=== PATIENT | male | born 1945 | race Caucasian/White ===

== ENCOUNTER → 2019-06-26 | Outpatient (CLI) | payer MEDICARE, OTHER | LOC: LL.CLIN 14:45 | PROVIDERS: ATTEND Nurse Practitioner | DX: Z23 Encounter for immunization (principal) | CPT/HCPCS: 90662; G0008 ==

== ENCOUNTER 2021-09-11 07:37 | Day surgery (SDC) | payer MEDICARE ==
[2021-09-11] MEDS ORDERED: Lactated Ringers 1,000 ML IV SCH (08:00)
[2021-09-11] MEDS ORDERED: Sodium Chloride 0.9% 10 ML Syringe FLUSH SCH (08:00)
[2021-09-11] MEDS ORDERED: Propofol 200 MG/20 ML SDV ONE ×2 (08:26→09:07)
[2021-09-11] MEDS ORDERED: Midazolam 1 MG/ML 2 ML SDV ONE ×2 (08:26→09:07)
[2021-09-11 15:00] VITALS: BP 176/108; PULSE 79
== END 2021-09-11 10:17 | disposition home or self-care (01) ==
LOC: LL.SDS 07:37
PROVIDERS: ATTEND Surgery
DX: Z12.11 Encounter for screening for malignant neoplasm of colon (principal); K57.30 Diverticulosis of large intestine without perforation or abscess without bleeding; E78.00 Pure hypercholesterolemia, unspecified; I10 Essential (primary) hypertension; J44.9 Chronic obstructive pulmonary disease, unspecified; E05.90 Thyrotoxicosis, unspecified without thyrotoxic crisis or storm; Z79.899 Other long term (current) drug therapy; Z86.010 Personal history of colon polyps
CPT/HCPCS: J2250; J2704; J7120

== ENCOUNTER 2023-08-09 11:28 | Emergency (ER) | payer MEDICARE ==
[2023-08-09 12:18] LABS: BASOPHILS PERCENT AUTO 1.2 % (0.0-2.0); EOSINOPHILS ABSOLUTE AUTO 0.13 K/uL (0.00-0.50); EOSINOPHILS PERCENT AUTO 1.5 % (0.0-5.0); HEMATOCRIT 47.5 % (39.0-49.0); HEMOGLOBIN 15.3 g/dL (13.1-16.8); LYMPHOCYTES ABSOLUTE AUTO 0.89 K/uL (0.50-3.50); LYMPHOCYTES PERCENT AUTO 10.5 % (10.0-50.0); MEAN CORPUSCULAR HEMOGLOBIN 30.7 pg (28.2-33.3); MEAN CORPUSCULAR HGB CONC 32.2 g/dL (31.7-36.0); MEAN CORPUSCULAR VOLUME 95.2 fL (84.0-98.0); MONOCYTES ABSOLUTE AUTO 1.38 K/uL (0.00-1.00); MONOCYTES PERCENT AUTO 16.3 % (2.0-14.0); NEUTROPHILS ABSOLUTE AUTO 5.97 K/uL (1.40-7.00); NEUTROPHILS PERCENT AUTO 70.5 % (45.0-80.0); PLATELET COUNT,PLT 275 K/uL (150-350); RED BLOOD CELL COUNT 4.99 M/uL (4.33-5.41); RED CELL DISTRIBUTION WIDTH 13.6 % (11.2-14.1); WHITE BLOOD CELL COUNT,WBC 8.5 K/uL (4.0-10.2)
[2023-08-09] MEDS ORDERED: Sodium Chloride 0.9% 10 ML Syringe FLUSH PRN (12:21)
[2023-08-09 12:48] VITALS: BP 136/81; PULSE 91
[2023-08-09 12:51] LABS: PRO B-TYPE NATRIUR PEPT,BNPPRO 219 pg/mL (0-125)
[2023-08-09 12:54] LABS: POTASSIUM,K 3.8 mmol/L (3.5-5.1)
[2023-08-09 12:55] LABS: ALBUMIN 3.5 g/dL (3.4-5.0); ANION GAP 13.9 meq/L (7-15); BILIRUBIN TOTAL 1.2 mg/dL (0.2-1.0); CALCIUM 9.1 mg/dL (8.5-10.1); CARBON DIOXIDE,CO2 27.9 mmol/L (21.0-32.0); CREATININE 1.18 mg/dL (0.51-1.17); EST CRCL DRUG DOSING (CG) 55.84 mL/min; PROTEIN TOTAL,TP 6.8 g/dL (6.4-8.2)
== END 2023-08-09 14:29 | disposition home or self-care (01) ==
LOC: LL.ED 11:28
DX: R60.0 Localized edema (principal); K30 Functional dyspepsia; I10 Essential (primary) hypertension; E78.00 Pure hypercholesterolemia, unspecified; E66.9 Obesity, unspecified; Z68.33 Body mass index [BMI] 33.0-33.9, adult; Z87.891 Personal history of nicotine dependence; Z79.82 Long term (current) use of aspirin; Z79.899 Other long term (current) drug therapy
CPT/HCPCS: 36415; 80053; 83880; 84484; 85025; 93005; 93010; 99284; 99285

== ENCOUNTER 2024-01-13 11:18 | Emergency (ER) | payer MEDICARE ==
[2024-01-13 11:57] LABS: BASOPHILS ABSOLUTE AUTO 0.05 K/uL (0.00-0.20); BASOPHILS PERCENT AUTO 0.5 % (0.0-2.0); EOSINOPHILS ABSOLUTE AUTO 0.05 K/uL (0.00-0.50); EOSINOPHILS PERCENT AUTO 0.5 % (0.0-5.0); HEMATOCRIT 43.5 % (39.0-49.0); HEMOGLOBIN 14.5 g/dL (13.1-16.8); LYMPHOCYTES ABSOLUTE AUTO 0.63 K/uL (0.50-3.50); LYMPHOCYTES PERCENT AUTO 6.8 % (10.0-50.0); MEAN CORPUSCULAR HEMOGLOBIN 31.1 pg (28.2-33.3); MEAN CORPUSCULAR HGB CONC 33.3 g/dL (31.7-36.0); MEAN CORPUSCULAR VOLUME 93.3 fL (84.0-98.0); MONOCYTES ABSOLUTE AUTO 0.89 K/uL (0.00-1.00); MONOCYTES PERCENT AUTO 9.6 % (2.0-14.0); NEUTROPHILS ABSOLUTE AUTO 7.65 K/uL (1.40-7.00); NEUTROPHILS PERCENT AUTO 82.6 % (45.0-80.0); PLATELET COUNT,PLT 244 K/uL (150-350); RED BLOOD CELL COUNT 4.66 M/uL (4.33-5.41); WHITE BLOOD CELL COUNT,WBC 9.3 K/uL (4.0-10.2)
[2024-01-13 12:02] VITALS: BP 155/90; PULSE 59
[2024-01-13 12:20] LABS: ALBUMIN 2.8 g/dL (3.4-5.0); BILIRUBIN TOTAL 0.6 mg/dL (0.2-1.0); CALCIUM 8.3 mg/dL (8.5-10.1); CARBON DIOXIDE,CO2 32.2 mmol/L (21.0-32.0); CREATININE 1.14 mg/dL (0.51-1.17); EST CRCL DRUG DOSING (CG) 57.8 mL/min; POTASSIUM,K 4.2 mmol/L (3.5-5.1); PROTEIN TOTAL,TP 6.3 g/dL (6.4-8.2)
== END 2024-01-13 13:14 | disposition home or self-care (01) ==
LOC: LL.ED 11:18
DX: L03.116 Cellulitis of left lower limb (principal); M19.90 Unspecified osteoarthritis, unspecified site; E66.9 Obesity, unspecified; J44.9 Chronic obstructive pulmonary disease, unspecified; I10 Essential (primary) hypertension; Z79.899 Other long term (current) drug therapy
CPT/HCPCS: 36415; 80053; 85025; 99283; 99284